=== PATIENT | female | born 1995 | race Caucasian/White ===

== ENCOUNTER 2018-05-31 04:18 | Emergency (ER) | payer BC, MEDICAID ==
[~2018-05-31] VITALS: Ht 167.6 cm; Wt 54.4 kg
--- NOTE | 2018-05-31 04:30 | NUR ---
CALLED PT TO BE TRIAGED, NO ANSWER. WILL FOLLOW UP
[2018-05-31 04:37] VITALS: BP 126/92
[2018-05-31] MEDS ORDERED: IBUPROFEN 400 MG TABLET PO ONE (05:00)
[2018-05-31] MEDS ORDERED: IBUPROFEN 400 MG TABLET ONE (05:04)
== END 2018-05-31 05:17 | disposition home or self-care (01) ==
LOC: ER 04:18
DX: R51 Headache (principal); K08.89 Other specified disorders of teeth and supporting structures; D64.9 Anemia, unspecified; F17.200 Nicotine dependence, unspecified, uncomplicated; I95.9 Hypotension, unspecified; Z88.6 Allergy status to analgesic agent; Z98.890 Other specified postprocedural states

== ENCOUNTER 2018-12-21 11:02 | Emergency (ER) | payer BC, MEDICAID ==
[~2018-12-21] VITALS: Ht 167.6 cm; Wt 63.5 kg
[2018-12-21 11:37] VITALS: BP 100/71
[2018-12-21] MEDS ORDERED: IBUPROFEN 600 MG TABLET PO ONE ×2 (13:00→13:31)
[2018-12-21 13:28] LABS: BASOPHILS % (AUTO) 0.3 % (0.0-2.0); EOSINOPHILS % (AUTO) 0.2 % (0.0-6.0); HEMATOCRIT 30 % (33-45); HEMOGLOBIN 9.6 g/dL (11.5-14.8); LYMPHOCYTES # (AUTO) 0.8 /CMM (0.8-4.8); LYMPHOCYTES % (AUTO) 25.7 % (20.0-44.0); MEAN CORPUSCULAR HGB CONC 32 g/dl (31.0-36.0); MEAN CORPUSCULAR VOLUME 84 fL (82-100); MONOCYTES # (AUTO) 0.3 /CMM (0.1-1.30); MONOCYTES % (AUTO) 8.9 % (2.0-12.0); NEUTROPHILS # (AUTO) 2.1 /CMM (1.8-8.9); NEUTROPHILS % (AUTO) 64.9 % (43.0-81.0); PLATELET COUNT (AUTO) 200 /CMM (150-450); RED BLOOD CELL COUNT(AUTO) 3.56 MIL/uL (4.0-5.2); WHITE BLOOD COUNT (AUTO) 3.2 K/uL (4.3-11.0)
[2018-12-21 13:35] LABS: CALCIUM, SERUM 9.3 mg/dL (8.5-10.1); CREATININE 0.7 mg/dL (0.6-1.3)
[2018-12-21 13:43] LABS: ALBUMIN 3.4 g/dL (3.4-5.0); BILIRUBIN,DIRECT 0.2 mg/dL (0.0-0.2); BILIRUBIN,TOTAL 0.7 mg/dL (0.2-1.0); TOTAL PROTEIN, SERUM 6.8 g/dL (6.4-8.2)
[2018-12-21 13:53] LABS: APPEARANCE,URINE Cloudy (CLEAR); BILIRUBIN,URINE Negative (NEGATIVE); BLOOD, URINE Trace-intact Ery/uL (NEGATIVE); COLOR,URINE Yellow (YELLOW); KETONES,URINE 15 (NEGATIVE); LEUKOCYTE ESTERASE ,URINE Trace (NEGATIVE); NITRITE, URINE Negative (NEGATIVE); PH,URINE 8.5 (5.0-8.0); PROTEIN,URINE Negative (NEGATIVE); UGLUCOSE Negative (NEGATIVE)
[2018-12-21 14:03] LABS: BACTERIA,URINE Rare /HPF (None Seen); RBC,URINE 0-3 /HPF (0-2); SQUAMOUS EPITHELIAL CELL,UR Moderate /HPF (None Seen)
== END 2018-12-21 14:58 ==
LOC: ER 11:04
DX: F19.10 Other psychoactive substance abuse, uncomplicated (principal); F11.90 Opioid use, unspecified, uncomplicated; F12.10 Cannabis abuse, uncomplicated; D72.819 Decreased white blood cell count, unspecified; D64.9 Anemia, unspecified; K60.2 Anal fissure, unspecified; K59.00 Constipation, unspecified; R10.84 Generalized abdominal pain; M54.5 Low back pain; G89.29 Other chronic pain; I95.9 Hypotension, unspecified; F10.10 Alcohol abuse, uncomplicated; F17.200 Nicotine dependence, unspecified, uncomplicated; Y90.9 Presence of alcohol in blood, level not specified; Z02.89 Encounter for other administrative examinations; Z88.6 Allergy status to analgesic agent
CPT/HCPCS: 36415; 74018; 80048-TC; 80076-TC; 81000-TC; 84702-TC; 84703-TC; 85025-TC; 87491; 87591